=== PATIENT | female | born 1940 | race Caucasian/White ===

== ENCOUNTER 2016-12-18 20:50 | Emergency (ER) | payer MEDICARE ==
--- NOTE | 2016-12-18 20:58 | ERPHSYRPT ---
- History of Present Illness Time Seen by Provider: 12/18/16 20:53 Source: patient, EMS Exam Limitations: no limitations Physician History: pt is a 76 year old lady with onset of dizziness and EMS found to be in Afib , she has had prior IN but is unaware of any Afib before and does not know her meds - does see Dr at [facility]. no injury no CP , Afib at 140. Timing/Duration: today Activities at Onset: none Location: other (no pain) Chest Pain Radiation: no radiation Severity of Pain-Max: none Severity of Pain-Current: none Nitro Today/Relief: no nitro taken today Aspirin Treatment Today: 325 mg x 1 Associated Symptoms: other (dizziness) Prior Chest Pain/Cardiac Workup: heart attack Allergies/Adverse Reactions: No Known Drug Allergies Allergy (Verified 12/18/16 21:07) Home Medications: Carvedilol 6.25 mg [Coreg 6.25 MG] 6.25 mg PO DAILY 12/03/14 [History] Furosemide 40 mg PO DAILY 12/03/14 [History] Indapamide 1.25 mg PO DAILY 12/03/14 [History] Lisinopril 40 mg PO DAILY 12/03/14 [History] Pravastatin Sodium 40 mg PO DAILY 12/03/14 [History] Hx Tetanus, Diphtheria Vaccination/Date Given: No (PT UNSURE) Hx Influenza Vaccination/Date Given: Yes (2013) Hx Pneumococcal Vaccination/Date Given: Yes (2013) - Review of Systems Constitutional: Weakness, No Fever, No Chills Eyes: No Symptoms Ears, Nose, & Throat: No Symptoms Respiratory: No Cough, No Dyspnea Cardiac: No Chest Pain, No Edema, No Syncope Abdominal/Gastrointestinal: No Abdominal Pain, No Nausea, No Vomiting, No Diarrhea Genitourinary Symptoms: No Dysuria Musculoskeletal: No Back Pain, No Neck Pain Skin: No Rash Neurological: Dizziness, No Focal Weakness, No Sensory Changes Psychological: No Symptoms Endocrine: No Symptoms Hematologic/Lymphatic: No Symptoms Immunological/Allergic: No Symptoms All Other Systems: Reviewed and Negative - Past Medical History Pertinent Past Medical History: Yes Cardiac History: Coronary Artery Disease, High Cholesterol, Hypertension, Myocardial Infarction ([place]) Endocrine Medical History: Diabetes Type II - Past Surgical History Past Surgical History: Yes Cardiac: CABG, Cardiac Catheterization Gastrointestinal: Cholecystectomy Female Surgical History: Section - Social History Smoking Status: Never smoker Exposure to second hand smoke: Yes Drug Use: none Patient Lives Alone: No - Physical Exam General Appearance: moderate distress, alert, anxiety Eye Exam: PERRL/EOMI, eyes nml inspection Ears, Nose, Throat Exam: normal ENT inspection, moist mucous membranes Neck Exam: normal inspection, non-tender, supple Respiratory Exam: normal breath sounds, lungs clear, No respiratory distress Cardiovascular Exam: normal heart sounds, tachycardia, irregular, No edema Gastrointestinal/Abdomen Exam: soft, No tenderness, No mass Pelvic Exam: deferred Rectal Exam: deferred Back Exam: normal inspection, No CVA tenderness, No vertebral tenderness Extremity Exam: normal inspection, normal range of motion Neurologic Exam: alert, oriented x 3, cooperative, normal mood/affect, nml cerebellar function, sensation nml, No motor deficits Skin Exam: normal color, warm, dry Lymphatic Exam: No adenopathy - Course Nursing assessment & vital signs reviewed: Yes EKG Interpreted by Me: A-fib, Right Bundle Branch Block, Non-specific ST Changes - Radiology Exams Chest X-ray Interpretation: Reviewed by me, Other (cardiomegally) Ordered Tests: Active Orders 24 hr Category Date Time Status Test Department Helper STAT Care 12/18/16 20:58 Active Clean Catch Urine Specimen STAT Care 12/18/16 20:58 Active EKG-ER Only STAT Care 12/18/16 20:58 Active IV Insertion STAT Care 12/18/16 21:08 Active IV Insertion-2nd Peripheral STAT Care 12/18/16 21:13 Active CHEST 1 VIEW (PORTABLE) Stat Exams 12/18/16 20:59 Taken CBC W DIFF Stat Lab 12/18/16 21:13 Completed CK-Creatinine Phosphokinase Stat Lab 12/18/16 21:13 Completed CMP Stat Lab 12/18/16 21:13 Completed Lactic Acid Urgent Lab 12/18/16 21:10 Completed NT PRO BNP Stat Lab 12/18/16 21:13 Completed TROPONIN Q3H Lab 12/18/16 21:13 Completed TROPONIN Q3H Lab 12/19/16 00:00 Ordered TROPONIN Q3H Lab 12/19/16 03:00 Ordered TROPONIN Q3H Lab 12/19/16 06:00 Ordered TROPONIN Q3H Lab 12/19/16 09:00 Ordered UA Stat Lab 12/18/16 20:59 Ordered Medication Summary Generic Name Dose Route Start Last Admin Trade Name Freq PRN Reason Stop Dose Admin Enoxaparin Sodium 90 mg 12/18/16 22:45 Enoxaparin Sodium SQ 01/17/17 22:44 Q12H PIERCE Sodium Chloride 1,000 mls @ 50 mls/hr 12/18/16 21:00 12/18/16 21:08 Sodium Chloride 0.9% 1000 Ml IV 01/17/17 20:59 50 mls/hr .Q20H PIERCE Administration Diltiazem HCl 100 mls @ 5 mls/hr 12/18/16 21:08 12/18/16 21:18 Cardizem Drip 100 Mg/100 Ml D5w IV 01/17/17 21:07 5 mg/hr .Q20H PRN 5 mls/hr HEART RATE/ A-FIB Administration Protocol 5 MG/HR Discontinued Medications Generic Name Dose Route Start Last Admin Trade Name Freq PRN Reason Stop Dose Admin Lorazepam 0.5 mg 12/18/16 21:56 12/18/16 22:02 Ativan 0.5 Mg PO 12/18/16 21:57 0.5 mg STAT ONE Administration Lorazepam Confirm 12/18/16 22:00 Ativan 1 Mg Administered 12/18/16 22:01 Dose 1 mg .ROUTE .STK-MED ONE Lab/Rad Data: Laboratory Result Diagrams 12/18/16 21:13 12/18/16 21:13 Laboratory Results 12/18/16 12/18/16 12/18/16 Range/Units 21:13 21:13 21:13 WBC 8.2 (4.0-10.5) K/mm3 RBC 5.10 (4.1-5.4) M/mm3 Hgb 15.1 (12.0-16.0) gm/dl Hct 44.6 (35-47) % MCV 87.5 (78-100) fl MCH 29.6 (26-32) pg MCHC 33.9 (32-36) g/dl RDW 14.2 H (11.5-14.0) % Plt Count 194 (150-450) K/mm3 MPV 12.8 H (6-9.5) fl Gran % 63.6 (36.0-66.0) % Lymphocytes % 23.6 L (24.0-44.0) % Monocytes % 10.0 (0.0-12.0) % Eosinophils % 2.7 (0.00-5.0) % Basophils % 0.1 (0.0-0.4) % Basophils # 0.01 (0-0.4) Sodium 141 (136-145) mEq/L Potassium 3.5 (3.5-5.1) mEq/L Chloride 104 (98-107) mEq/L Carbon Dioxide 27.0 (21-32) mEq/L Anion Gap 13.2 (5-15) MEQ/L BUN 20 (9-20) mg/dL Creatinine 1.43 H (0.55-1.30) mg/dl Estimated GFR 38 ML/MIN Glucose 147 H (70-110) MG/DL Lactic Acid (0.4-2.0) Calcium 9.9 (8.5-10.1) mg/dL Total Bilirubin 0.4 (0.2-1.0) mg/dL AST 13 L (15-37) U/L ALT 14 (12-78) U/L Alkaline Phosphatase 132 H (46-116) U/L Creatine Kinase 47 (26-192) U/L Troponin I 0.017 (0.000-0.056) ng/ml NT-Pro-B Natriuret Pep 4590 H (0-125) pg/ml Serum Total Protein 7.4 (6.4-8.2) gm/dL Albumin 3.4 (3.4-5.0) g/dL 12/18/16 Range/Units 21:10 WBC (4.0-10.5) K/mm3 RBC (4.1-5.4) M/mm3 Hgb (12.0-16.0) gm/dl Hct (35-47) % MCV (78-100) fl MCH (26-32) pg MCHC (32-36) g/dl RDW (11.5-14.0) % Plt Count (150-450) K/mm3 MPV (6-9.5) fl Gran % (36.0-66.0) % Lymphocytes % (24.0-44.0) % Monocytes % (0.0-12.0) % Eosinophils % (0.00-5.0) % Basophils % (0.0-0.4) % Basophils # (0-0.4) Sodium (136-145) mEq/L Potassium (3.5-5.1) mEq/L Chloride (98-107) mEq/L Carbon Dioxide (21-32) mEq/L Anion Gap (5-15) MEQ/L BUN (9-20) mg/dL Creatinine (0.55-1.30) mg/dl Estimated GFR ML/MIN Glucose (70-110) MG/DL Lactic Acid 1.5 (0.4-2.0) Calcium (8.5-10.1) mg/dL Total Bilirubin (0.2-1.0) mg/dL AST (15-37) U/L ALT (12-78) U/L Alkaline Phosphatase (46-116) U/L Creatine Kinase (26-192) U/L Troponin I (0.000-0.056) ng/ml NT-Pro-B Natriuret Pep (0-125) pg/ml Serum Total Protein (6.4-8.2) gm/dL Albumin (3.4-5.0) g/dL - Progress Progress: improved, re-examined Air Movement: good Progress Note: 12/18/16 22:42 RATE CONTROLLED around 100 ; discussed with Dr. Salas at [facility] and he accepted pt in transfer for further w/u and requested starting lovenox which we did in ER. Blood Culture(s) Obtained: No Antibiotics given: No Discussed with : Other (Dr Salas) Will see patient in: hospital (full admit) Counseled pt/family regarding: lab results, diagnosis, need for follow-up, rad results - Departure Time of Disposition: 22:43 Departure Disposition: Transfer Clinical Impression: Uncontrolled atrial fibrillation Condition: Good Critical Care Time: No
[2016-12-18] MEDS ORDERED: Sodium Chloride 0.9% 1000 ML 1,000 ML IV SCH (21:00)
[2016-12-18] MEDS ORDERED: Sodium Chloride 0.9% 1000 ML 1,000 ML ONE (21:02)
[2016-12-18] MEDS ORDERED: CARDIZEM DRIP 100 MG/100 ML D5W 100 ML IV PRN (21:08)
[2016-12-18] MEDS ORDERED: CARDIZEM DRIP 100 MG/100 ML D5W 100 ML IV ONE (21:17)
[2016-12-18 21:34] LABS: BASOPHIL % 0.1 % (0.0-0.4); Eosinophil % 2.7 % (0.00-5.0); Granulocytes % 63.6 % (36.0-66.0); Lymphocytes % 23.6 % (24.0-44.0); Mean Cell Volume 87.5 fl (78-100); Mean Corpuscular Hemoglobin 29.6 pg (26-32); Mean Platelet Volume 12.8 fl (6-9.5); Platelet Count 194 K/mm3 (150-450); Red Cell Distribution Width 14.2 % (11.5-14.0); White Blood Count 8.2 K/mm3 (4.0-10.5)
[2016-12-18 21:46] LABS: ALBUMIN 3.4 g/dL (3.4-5.0); ANION GAP 13.2 MEQ/L (5-15); BILIRUBIN,TOTAL 0.4 mg/dL (0.2-1.0); Potassium 3.5 mEq/L (3.5-5.1); Total Protein 7.4 gm/dL (6.4-8.2)
[2016-12-18] MEDS ORDERED: Ativan 0.5 MG PO ONE (21:56)
[2016-12-18] MEDS ORDERED: Ativan 1 MG ONE (22:00)
[2016-12-18] MEDS ORDERED: ENOXAPARIN SODIUM SQ ONE (22:42)
[2016-12-18] MEDS ORDERED: ENOXAPARIN SODIUM SQ SCH (22:45)
[2016-12-18 23:01] VITALS: BP 165/108; PULSE 103; O2SAT 96
--- NOTE | 2016-12-19 09:37 | XRAY ---
Indication: Atrial fibrillation. Comparison: None Portable chest is clear with incidental calcified granulomas. Heart is not enlarged for AP portable technique and demonstrates previous CABG surgery. Bony thorax intact. Incidental epigastric postsurgical changes. Impression: Nonacute chest with chronic features.
== END 2016-12-18 23:24 | disposition short-term general hospital (02) ==
LOC: ED 20:50
DX: I48.91 Unspecified atrial fibrillation (principal); I25.2 Old myocardial infarction; R42 Dizziness and giddiness; I25.10 Atherosclerotic heart disease of native coronary artery without angina pectoris; E78.00 Pure hypercholesterolemia, unspecified; I10 Essential (primary) hypertension; E11.9 Type 2 diabetes mellitus without complications; Z79.899 Other long term (current) drug therapy; Z95.1 Presence of aortocoronary bypass graft
CPT/HCPCS: 36000; 36415; 71010; 80053; 82550; 83605; 83880; 84484; 85025; 93005; 93041; 96360; 96361; 96365; 96366; 96372; 99285; J1650; A9270-GY

== ENCOUNTER 2017-10-06 13:46 | Emergency (ER) | payer MEDICARE ==
--- NOTE | 2017-10-06 14:20 | ERPHSYRPT ---
- History of Present Illness Time Seen by Provider: 10/06/17 13:55 Source: patient, EMS Patient Subjective Stated Complaint: pt here for a short fall, she states that she tripped and fell, landed on bottom, pt denies any cos, she was incont of urine, has strong smelling urine Triage Nursing Assessment: pt alert, resp easy.skin w/d/p. no cos of burning with urination, she denies any injury, pt walked from cot to bed Physician History: CC: fall Hx: 77 y/o patient of Dr Salas lives at [facility]. She tripped on a curb and fell. She hit her head. No blood thinners. No neck or back pain. Denies injuries. She denies any injuries but was sent to the hospital. [facility] called and told nurses her apt was smelling of urine and they thought she needs attention. Occurred: just prior to arrival Reason for Fall: tripped (on a curb) Injuries/Pain Location: no injury Loss of Consciousness: no loss of consciousness Allergies/Adverse Reactions: No Known Drug Allergies Allergy (Verified 10/06/17 14:04) Home Medications: Carvedilol 6.25 mg [Coreg 6.25 MG] 6.25 mg PO DAILY 12/03/14 [History] Furosemide 40 mg PO DAILY 12/03/14 [History] Pravastatin Sodium 40 mg PO DAILY 12/03/14 [History] Calcitriol 0.25 mcg PO 3XW 12/18/16 [History] Glimepiride 1 mg PO DAILY 12/18/16 [History] Oxybutynin Chloride 5 mg PO DAILY 12/18/16 [History] Allopurinol [Allopurinol] 100 mg DAILY 10/06/17 [History] Indapamide [Indapamide] 1.25 ea DAILY 10/06/17 [History] Lisinopril [Lisinopril] 40 mg DAILY 10/06/17 [History] Metoprolol Tartrate 50 mg DAILY 10/06/17 [History] [id number]/Sod Sulf,Bicarb,Cl/KCl [Gavilyte-G Solution] 1 ea DAILY 10/06/17 [ History] Potassium Chloride 20 Meq [Klor-Con 20 MEQ] 20 meq DAILY 10/06/17 [History] Hx Tetanus, Diphtheria Vaccination/Date Given: No (PT UNSURE) Hx Influenza Vaccination/Date Given: Yes Hx Pneumococcal Vaccination/Date Given: Yes Immunizations Up to Date: Yes - Review of Systems Constitutional: No Fever, No Chills Eyes: No Symptoms Cardiac: No Chest Pain, No Syncope Abdominal/Gastrointestinal: No Abdominal Pain, No Nausea, No Vomiting, No Diarrhea Genitourinary Symptoms: Dysuria, Incontinence Musculoskeletal: No Back Pain Skin: No Rash Neurological: No Focal Weakness, No Headache, No Parasthesia All Other Systems: Reviewed and Negative - Past Medical History Pertinent Past Medical History: Yes Neurological History: Stroke Cardiac History: Coronary Artery Disease, High Cholesterol, Hypertension, Myocardial Infarction ([place]) Endocrine Medical History: Diabetes Type II - Past Surgical History Past Surgical History: Yes Cardiac: CABG, Cardiac Catheterization Gastrointestinal: Cholecystectomy Female Surgical History: Section - Social History Smoking Status: Never smoker Exposure to second hand smoke: No Drug Use: none Patient Lives Alone: No - Female History Hx Last Menstrual Period: post Hx Now: No - Nursing Vital Signs Nursing Vital Signs: Initial Vital Signs Temperature 97.0 F 10/06/17 13:47 Pulse Rate 61 10/06/17 13:47 Respiratory Rate 16 10/06/17 13:47 Blood Pressure 152/84 10/06/17 13:47 O2 Sat by Pulse Oximetry 98 10/06/17 13:47 Pain Scale Pain Intensity 0 - Lexa Coma Score Best Eye Response (Lexa): (4) open spontaneously Best Verbal Response (Lexa): (5) oriented Best Motor Response (Maria R): (6) obeys commands Lexa Total: 15 - Physical Exam General Appearance: alert, other (flat affect and slow to speak but oriented) Head Injury: no evidence of injury Eye Exam: PERRL/EOMI ENT Exam: airway nml Neck Exam: supple, No mid-line tenderness Respiratory/Chest Exam: normal breath sounds, No chest tenderness Cardiovascular Exam: normal heart sounds, regular rate/rhythm Gastrointestinal Exam: soft, No tenderness, No distention Back Exam: normal inspection, No vertebral tenderness Extremity Exam: normal inspection, normal range of motion, pedal edema (trace) Neurologic Exam: alert, oriented x 3, cooperative, mine surveyor II-XII nml as tested, sensation nml, No motor deficits Skin Exam: warm, dry, No rash SpO2 Interpretation: normal SpO2: 98 Oxygen Delivery: Room Air - Course Nursing assessment & vital signs reviewed: Yes Ordered Tests: Active Orders 24 hr Category Date Time Status Cath for Specimen-Straight STAT Care 10/06/17 13:56 Active CBC W DIFF Stat Lab 10/06/17 14:39 Completed CMP Stat Lab 10/06/17 14:39 Completed CULTURE,URINE Stat Lab 10/06/17 14:10 Received UA W/ MICROSCOPIC Stat Lab 10/06/17 14:10 Completed Medication Summary Discontinued Medications Generic Name Dose Route Start Last Admin Trade Name Georgiana PRN Reason Stop Dose Admin Acetaminophen 650 mg 10/06/17 15:49 Tylenol 325 Mg PO 10/06/17 15:50 STAT ONE Cephalexin HCl 500 mg 10/06/17 15:49 Keflex 500 Mg PO 10/06/17 15:50 STAT ONE Lab/Rad Data: Laboratory Result Diagrams 10/06/17 14:39 10/06/17 14:39 Laboratory Results 10/06/17 10/06/17 10/06/17 Range/Units 14:39 14:39 14:10 WBC 4.0 (4.0-10.5) K/mm3 RBC 4.18 (4.1-5.4) M/mm3 Hgb 12.6 (12.0-16.0) gm/dl Hct 38.1 (35-47) % MCV 91.1 (78-100) fl MCH 30.1 (26-32) pg MCHC 33.1 (32-36) g/dl RDW 12.9 (11.5-14.0) % Plt Count 163 (150-450) K/mm3 MPV 12.1 H (6-9.5) fl Gran % 51.0 (36.0-66.0) % Lymphocytes % 32.9 (24.0-44.0) % Monocytes % 11.4 (0.0-12.0) % Eosinophils % 4.2 (0.00-5.0) % Basophils % 0.5 (0.0-0.4) % Basophils # 0.02 (0-0.4) Sodium 143 (137-145) mmol/L Potassium 4.1 (3.5-5.1) mmol/L Chloride 107 (98-107) mEq/L Carbon Dioxide 27 (22-30) mmol/L Anion Gap 12.5 (5-15) MEQ/L BUN 15 (7-17) mg/dl Creatinine 1.38 H (0.52-1.04) mg/dl Estimated GFR 40 ML/MIN Glucose 161 H (74-106) mg/dL Calcium 9.3 (8.4-10.2) mg/dL Total Bilirubin 0.80 (0.2-1.3) mg/d? AST 16 (14-36) U/L ALT 12 (0-35) U/L Alkaline Phosphatase 90 (38-126) U/L Serum Total Protein 6.1 L (6.3-8.2) mg/dl Albumin 3.4 L (3.5-5.0) g/dl Ur Collection Type CATH Urine Color YELLOW (YELLOW) Urine Appearance CLOUDY (CLEAR) Urine pH 5.0 (5-6) Ur Specific [place] 1.020 (1.005-1.025) Urine Protein NEGATIVE (Negative) Urine Ketones NEGATIVE (NEGATIVE) Urine Blood NEGATIVE (0-5) Ruben/ul Urine Nitrite POSITIVE (NEGATIVE) Urine Bilirubin NEGATIVE (NEGATIVE) Urine Urobilinogen NORMAL (0-1) mg/dL Ur Leukocyte Esterase 2+ (NEGATIVE) Urine Microscopic RBC 0-2 (0-2) /HPF Urine Microscopic WBC >100 (0-5) /HPF Ur Epithelial Cells RARE (FEW) /HPF Urine Bacteria PACKED (NEGATIVE) /HPF Urine Culture Reflexed YES (NO) Urine Glucose NEGATIVE (NEGATIVE) mg/dL Specimen Received [id number] - Progress Progress Note: 10/06/17 14:19 No sign of injury but smell of urine. Will check for UTI. 10/06/17 15:53 Pt stable. Mild headache. No LOC, no vomiting, not confused. Consulted long term care social worker. She arranged [facility] tomorrow. Will release with UTI Rx. Counseled pt/family regarding: lab results, diagnosis, need for follow-up - Departure Time of Disposition: 15:53 Departure Disposition: Home Clinical Impression: Fall, UTI (urinary tract infection) Condition: Stable Critical Care Time: No Referrals: STEFANO SALAS [Primary Care Provider] - Instructions: Preventing Falls, Urinary Tract Infection, Adult (DC) Additional Instructions: HEAD INJURY 1. A responsible person should observe the patient at home for 24 hours. 2. If any of the following signs or symptoms are observed or occur, call your family physician or return to the emergency department: A. Behavior change B. Persistent vomiting C. Unequal pupils D. Increasing drowsiness E. Difficulty in arousing the patient F. Severe headache G. Lump on head increasing in size Rx keflex. Use tylenol every 6 hours if needed for discomfort. Return for confusion, vomiting, or concerns. Home Health Care will see you tomorrow. Prescriptions: Cephalexin Mh 500 mg [Keflex 500 mg] 1 cap PO QID #40 capsule
[2017-10-06 14:31] LABS: Appearance CLOUDY (CLEAR); Bilirubin NEGATIVE (NEGATIVE); Blood NEGATIVE Ery/ul (0-5); Glucose NEGATIVE (NEGATIVE); Ketones NEGATIVE (NEGATIVE); Leukocyte Esterase 2+ (NEGATIVE); Nitrite POSITIVE (NEGATIVE); Protein,Urine Dip NEGATIVE (Negative); Urobilinogen NORMAL mg/dL (0-1)
[2017-10-06 14:37] LABS: Bacteria PACKED /HPF (NEGATIVE); Epithelial Cells RARE /HPF (FEW); WBC >100 /HPF (0-5)
[2017-10-06 14:45] LABS: BASOPHIL % 0.5 % (0.0-0.4); Basophil (Absolute #) 0.02 (0-0.4); Eosinophil % 4.2 % (0.00-5.0); Eosinophil (Absolute #) 0.17 (0-0.5); Granulocyte Absolute (ANC) 2.06 (1.4-6.9); Hematocrit 38.1 % (35-47); Hemoglobin 12.6 gm/dl (12.0-16.0); Lymphocyte (Absolute #) 1.33 (1.0-4.6); Lymphocytes % 32.9 % (24.0-44.0); Mean Cell Volume 91.1 fl (78-100); Mean Corpuscular Hemoglobin 30.1 pg (26-32); Mean Corpuscular Hgb Concent. 33.1 g/dl (32-36); Mean Platelet Volume 12.1 fl (6-9.5); Monocyte (Absolute #) 0.46 (0.0-1.3); Monocytes % 11.4 % (0.0-12.0); Platelet Count 163 K/mm3 (150-450); Red Blood Count 4.18 M/mm3 (4.1-5.4); Red Cell Distribution Width 12.9 % (11.5-14.0)
[2017-10-06 15:03] LABS: ALBUMIN 3.4 g/dl (3.5-5.0); ANION GAP 12.5 MEQ/L (5-15); BILIRUBIN,TOTAL 0.8 mg/d? (0.2-1.3); Calcium 9.3 mg/dL (8.4-10.2); Creatinine 1 1.38 mg/dl (0.52-1.04); Potassium 4.1 mmol/L (3.5-5.1); Total Protein 6.1 mg/dl (6.3-8.2)
[2017-10-06] MEDS ORDERED: KEFLEX 500 MG PO ONE (15:49)
[2017-10-06] MEDS ORDERED: TYLENOL 325 MG PO ONE (15:49)
[2017-10-06] MEDS ORDERED: KEFLEX 500 MG ONE (16:05)
[2017-10-06] MEDS ORDERED: TYLENOL 325 MG ONE (16:05)
[2017-10-06 16:22] VITALS: BP 120/72; PULSE 70; O2SAT 96
== END 2017-10-06 16:22 | disposition home or self-care (01) ==
LOC: ED 13:46
DX: N39.0 Urinary tract infection, site not specified (principal); R51 Headache; W01.198A Fall on same level from slipping, tripping and stumbling with subsequent striking against other object, initial encounter; Z79.899 Other long term (current) drug therapy
CPT/HCPCS: 99282; 81000; 36415; 87186; 85025; 87077; 80053; 87086; P9612; 99283; A9270-GY

== ENCOUNTER 2017-10-26 18:32 | Emergency (ER) | payer MEDICARE ==
[2017-10-26] MEDS ORDERED: Adacel Vial IM ONE ×2 (19:29→19:32)
[2017-10-26] MEDS ORDERED: MOTRIN 600 MG PO ONE (19:32)
[2017-10-26] MEDS ORDERED: MOTRIN 600 MG ONE (19:33)
--- NOTE | 2017-10-26 19:37 | ERPHSYRPT ---
- History of Present Illness Time Seen by Provider: 10/26/17 19:29 Source: patient Exam Limitations: no limitations Patient Subjective Stated Complaint: slipped and fell on gravel out at house Triage Nursing Assessment: has some small scrapes to left cheek lip and fore head, gait is slightly shaky but says that is her normal, ambulates by self, alert and oriented x3, all other skin warm dry and intact. pupils [id number] Physician History: Patient tripped and fell on uneven ground approximately one hour and a half prior to arriving to the ED. Patient hit her face and left knee resulting in abrasion/contusion/pain to areas involved. Patient did not have any loss of consciousnes, headaches, vomiting, dizziness, chest pain, palpitation, shortness of breath, altered mental status or difficulty speaking. Patient doesn't remember her last tetanus. Denies any neck, back, chest, abdomen, pelvis or any other injuries at this time. Occurred: just prior to arrival Reason for Fall: tripped, fell from standing pos Injuries/Pain Location: face, lower extremity (L knee) Loss of Consciousness: no loss of consciousness Quality: aching, burning Severity of Pain-Max: mild Severity of Pain-Current: mild Modifying Factors: Improves With: immobilization (improves L knee pain), movement (worsens L knee pain) Associated Symptoms (Fall): extremity injury, No chest pain, No headache, No lightheadedness, No neck pain, No shortness of breath, No vision changes Allergies/Adverse Reactions: No Known Drug Allergies Allergy (Verified 10/06/17 14:04) Home Medications: Carvedilol 6.25 mg [Coreg 6.25 MG] 6.25 mg PO DAILY 12/03/14 [History] Furosemide 40 mg PO DAILY 12/03/14 [History] Pravastatin Sodium 40 mg PO DAILY 12/03/14 [History] Calcitriol 0.25 mcg PO 3XW 12/18/16 [History] Glimepiride 1 mg PO DAILY 12/18/16 [History] Oxybutynin Chloride 5 mg PO DAILY 12/18/16 [History] Allopurinol [Allopurinol] 100 mg DAILY 10/06/17 [History] Indapamide [Indapamide] 1.25 ea DAILY 10/06/17 [History] Lisinopril [Lisinopril] 40 mg DAILY 10/06/17 [History] Metoprolol Tartrate 50 mg DAILY 10/06/17 [History] [id number]/Sod Sulf,Bicarb,Cl/KCl [Gavilyte-G Solution] 1 ea DAILY 10/06/17 [ History] Potassium Chloride 20 Meq [Klor-Con 20 MEQ] 20 meq DAILY 10/06/17 [History] Hx Tetanus, Diphtheria Vaccination/Date Given: Yes Hx Influenza Vaccination/Date Given: Yes Hx Pneumococcal Vaccination/Date Given: Yes Immunizations Up to Date: Yes - Review of Systems Constitutional: No Fever, No Chills Eyes: No Symptoms Ears, Nose, & Throat: No Symptoms Respiratory: No Symptoms, No Cough, No Dyspnea Cardiac: No Symptoms, No Chest Pain, No Edema, No Syncope Abdominal/Gastrointestinal: No Symptoms, No Abdominal Pain, No Nausea, No Vomiting, No Diarrhea Genitourinary Symptoms: No Symptoms, No Dysuria Musculoskeletal: Fall, Joint Pain (L knee), Joint Swelling (L knee), No Back Pain, No Neck Pain Skin: Skin Lesions (Skin abrasions to L side of face/L knee), No Rash Neurological: No Symptoms, No Dizziness, No Focal Weakness, No Sensory Changes Psychological: No Symptoms Endocrine: No Symptoms All Other Systems: Reviewed and Negative - Past Medical History Pertinent Past Medical History: Yes Neurological History: Stroke Cardiac History: Coronary Artery Disease, High Cholesterol, Hypertension, Myocardial Infarction ([place]) Endocrine Medical History: Diabetes Type II - Past Surgical History Past Surgical History: Yes Cardiac: CABG, Cardiac Catheterization Gastrointestinal: Cholecystectomy Female Surgical History: Section - Social History Smoking Status: Never smoker Exposure to second hand smoke: No Drug Use: none Patient Lives Alone: Yes - Female History Hx Now: No - Nursing Vital Signs Nursing Vital Signs: Initial Vital Signs Temperature 97.5 F 10/26/17 18:33 Pulse Rate 84 10/26/17 18:33 Respiratory Rate 18 10/26/17 18:33 Blood Pressure 171/91 10/26/17 18:33 O2 Sat by Pulse Oximetry 98 10/26/17 18:33 Pain Scale Pain Intensity 0 - [place] Coma Score Best Eye Response (Maria R): (4) open spontaneously Best Verbal Response (Pacific): (5) oriented Best Motor Response (Maria R): (6) obeys commands Maria R Total: 15 - Physical Exam General Appearance: no apparent distress, alert Head Injury: no evidence of injury Eye Exam: PERRL/EOMI, eyes nml inspection, other (patient with skin abrasion/ contusion left periorbital area. There is some tenderness to this area as well) ENT Exam: airway nml Neck Exam: supple, trachea midline, full range of motion, normal alignment, normal inspection, No tenderness Respiratory/Chest Exam: normal breath sounds, No chest tenderness, No respiratory distress Cardiovascular Exam: normal heart sounds, regular rate/rhythm Gastrointestinal Exam: soft, No tenderness, No distention, No guarding, No ecchymosis Back Exam: normal inspection, No vertebral tenderness Extremity Exam: pelvis stable, joint swelling (L knee swelling/abrasion to area , decrease ROM due to pain), No deformities Peripheral Pulses: dorsalis-pedis (R): 2+, dorsalis-pedis (L): 2+ (I) Neurologic Exam: alert, oriented x 3, cooperative, sensation nml, No motor deficits Skin Exam: normal color, warm, dry SpO2: 98 Oxygen Delivery: Room Air - Course Nursing assessment & vital signs reviewed: Yes - Radiology Exams Facial X-ray Interpretation: Interpreted by me, No Fracture Left Knee X-ray Interpretation: Interpreted by me, No Fracture Ordered Tests: Active Orders 24 hr Category Date Time Status FACIAL BONES (MINIMUM 3 VIEWS) Stat Exams 10/26/17 19:31 Taken KNEE (3 VIEWS) Stat Exams 10/26/17 19:31 Taken Medication Summary Discontinued Medications Generic Name Dose Route Start Last Admin Trade Name Freq PRN Reason Stop Dose Admin Diphtheria/Tetanus/Acell Pertussis 0.5 ml 10/26/17 19:29 10/26/17 19:35 Adacel Vial IM 10/26/17 19:30 0.5 ml .ONCE ONE Administration Diphtheria/Tetanus/Acell Pertussis Confirm 10/26/17 19:32 Adacel Vial Administered 10/26/17 19:33 Dose 0.5 ml IM .STK-MED ONE Ibuprofen 600 mg 10/26/17 19:32 10/26/17 19:34 Motrin 600 Mg PO 10/26/17 19:33 600 mg STAT ONE Administration Ibuprofen Confirm 10/26/17 19:33 Motrin 600 Mg Administered 10/26/17 19:34 Dose 600 mg .ROUTE .STK-MED ONE - Progress Progress: improved Progress Note: 10/26/17 20:51 patient was given Motrin 600 mg with some relief of her symptoms Counseled pt/family regarding: diagnosis, rad results - Departure Time of Disposition: 20:51 Departure Disposition: Home Clinical Impression: Multiple contusions, Facial abrasion Condition: Stable Critical Care Time: No Referrals: STEFANO ESPARZA [Primary Care Provider] - Instructions: Contusion (DC), Skin Abrasions Additional Instructions: ice to any sore areas. May take Motrin or Tylenol for for pain/swelling. Return for worse pain, swelling, redness, numbness, tingling, weakness or any problems
[2017-10-26 20:56] VITALS: O2SAT 98
[2017-10-26 21:03] VITALS: BP 157/87; PULSE 77
--- NOTE | 2017-10-27 09:07 | XRAY ---
Indication: Pain/swelling following fall. Comparison: None 3 views of the left knee intact with minimal osteopenia, mild tricompartmental degenerative changes, fabella, scattered vascular calcifications, and distal thigh vascular clips. No other bony, articular, or soft tissue abnormalities.
--- NOTE | 2017-10-27 09:15 | XRAY ---
Indication: Left cheek abrasion following fall. Comparison: None 4 views of the facial bones demonstrates mild osteopenia, hyperostosis frontalis interna, mild multilevel cervical degenerative changes, and multiple dental amalgams. No acute fracture or suspicious bony lesions. Visualized paranasal sinuses and nasal passages are clear. Impression: Negative acute fracture. Incidental chronic findings.
== END 2017-10-26 21:19 | disposition home or self-care (01) ==
LOC: ED 18:32
DX: S00.83XA Contusion of other part of head, initial encounter (principal); S80.02XA Contusion of left knee, initial encounter; S00.81XA Abrasion of other part of head, initial encounter; S80.212A Abrasion, left knee, initial encounter; W01.0XXA Fall on same level from slipping, tripping and stumbling without subsequent striking against object, initial encounter; I25.810 Atherosclerosis of coronary artery bypass graft(s) without angina pectoris; I10 Essential (primary) hypertension; E78.00 Pure hypercholesterolemia, unspecified; I25.2 Old myocardial infarction; E11.9 Type 2 diabetes mellitus without complications; Z79.899 Other long term (current) drug therapy
CPT/HCPCS: 70150; 73562; 90471; 90715; 99282; A9270-GY